=== PATIENT | female | born 1950 | race Caucasian/White ===

== ENCOUNTER 2017-02-24 20:28 | Inpatient (IN) ==
[2017-02-24] MEDS ORDERED: Naloxone 0.4 MG/ML INJ IVP PRN (21:34)
[2017-02-24] MEDS ORDERED: *HR* Morphine 2 MG/ML SYRINGE IVP PRN ×2 (21:34→21:42)
--- NOTE | 2017-02-24 21:38 | General Surg History&Physical ---
Date of Encounter: 02/24/17 Time of Encounter: 21:20 Assessment and Plan (1) Splenic laceration Current Visit: Yes Status: Acute The assessment and plan as outlined above was discussed with the patient and/or family members who expressed understanding and agreement. All questions were answered. The patient presents with an apparent splenic laceration either from falling from syncope or colonoscopy. This is a very unusual complication. The CAT scan from [facility] is being downloaded for comparison and a follow-up CAT scan has been ordered. We will continue to treat her for hemorrhagic shock. We have discussed methods of augmenting her coagulation status while on therapeutic Plavix. I felt that the whole blood would be useful but the laboratory informed us that this is unavailable. The patient has undergone continuous management for over one hour in the ICU setting. Qualifiers: Encounter type: initial encounter Qualified Code(s): S36.039A - Unspecified laceration of spleen, initial encounter History of Present Illness Chief complaint: Syncope and abdominal bleeding HPI: Ms. Varma is a 66 year old female He underwent colonoscopy earlier today by Dr. William. On the way home from the hospital she had a syncopal event. She presented to the [facility] emergency department and had an initial hemoglobin of 11. She underwent CAT scan of the abdomen after complaining of left upper quadrant pain. CAT scan demonstrated bleeding from the spleen. The patient denies any rectal bleeding. The patient had 2 polypectomies both of which were fairly small in the sigmoid colon. The patient takes Plavix for lower extremity arterial stents. The patient is a poor historian but thinks that these are greater than 2 years old. She has no coronary artery stents by history. The Plavix was not discontinued for the procedure. She had a follow-up hemoglobin was 6.5. She received 4 units of packed red blood cells. She was transferred to the intensive care unit at [facility]. At time of evaluation she is awake and alert and complaining of left upper quadrant pain. Her heart rate was 78 systolic blood pressure was 94. Her CAT scan came as a disc and is currently being downloaded. I have ordered a repeat CAT scan with intravenous contrast to see if she is actively bleeding. My plan is to treat her like blunt trauma assuming that these splenocolic ligament or adhesion has created a capsular injury. Unfortunately she is on Plavix and our ability to reverse her coagulopathy is limited. We will plan to transfuse HER-2 stability. She may require embolization of the spleen. We will reserve splenectomy for treatment failure. Past Med Surg Social Fam HX - Past Medical History Medical history: syncope, TIA, other (Peripheral vascular disease) - Past Surgical History Surgical History: vascular surgery - Social History Alcohol use: none Drug use: none Medications and Allergies Aspirin [Lo-Dose Aspirin EC] 81 mg PO DAILY 11/09/16 [History] Atorvastatin Calcium 80 mg PO DAILY 02/23/17 [History] Calcium Carbonate [Calcium] 1,000 mg PO DAILY 02/23/17 [History] Clopidogrel [Plavix] 75 mg PO DAILY 02/23/17 [History] Folic Acid/Multivit-Min/Lutein [Adult Multivitamin Gummies] 1 each PO DAILY [History] Gluc/Sotero-MSM#1/C/Sudheer/Mukesh/Bor [Osteo Bi-Flex Caplet] 2 each PO DAILY 02/23/17 [ History] Metoprolol Succinate 50 mg PO DAILY 02/23/17 [History] Ranitidine HCl [Heartburn Relief] 150 mg PO BID 02/23/17 [History] hydroCHLOROthiazide [Hydrochlorothiazide] 25 mg PO DAILY 02/23/17 [History] 3 Allergy/AdvReac Type Severity Reaction Status Date / Time amlodipine Allergy See Verified 11/09/16 12:47 Comments lisinopril Allergy See Verified 11/09/16 12:47 Comments Review of Systems All systems PM: A 10-system review of systems was performed and is negative for pertinent findings except as documented above in the HPI. General Surgery Exam Heart rate is 78. Systolic blood pressures 94 - General physical appearance other (Examined in the intensive care unit supine. She is pale.) - Neck no masses, no bruits, trachea midline, no lymphadectomy, no venous distension - Abdomen Abdomen general surgery: Present: tender Abdominal Tenderness: Present: LUQ Results - Labs All other labs normal.
--- NOTE | 2017-02-24 21:41 | Internal Med History&Physical ---
Date of Encounter: 02/24/17 Internal Medicine - H&P: HPI History of present illness: Ms. Varma is a 66 year old female Past Med Surg Social Fam HX - Social History Alcohol use: none Drug use: none Internal Medicine - H&P: Meds Aspirin [Lo-Dose Aspirin EC] 81 mg PO DAILY 11/09/16 [History] Atorvastatin Calcium 80 mg PO DAILY 02/23/17 [History] Calcium Carbonate [Calcium] 1,000 mg PO DAILY 02/23/17 [History] Clopidogrel [Plavix] 75 mg PO DAILY 02/23/17 [History] Folic Acid/Multivit-Min/Lutein [Adult Multivitamin Gummies] 1 each PO DAILY [History] Gluc/Sotero-MSM#1/C/Sudheer/Mukesh/Bor [Osteo Bi-Flex Caplet] 2 each PO DAILY 02/23/17 [ History] Metoprolol Succinate 50 mg PO DAILY 02/23/17 [History] Ranitidine HCl [Heartburn Relief] 150 mg PO BID 02/23/17 [History] hydroCHLOROthiazide [Hydrochlorothiazide] 25 mg PO DAILY 02/23/17 [History] 3 Allergy/AdvReac Type Severity Reaction Status Date / Time amlodipine Allergy See Verified 11/09/16 12:47 Comments lisinopril Allergy See Verified 11/09/16 12:47 Comments All Systems PM: A 10-system review of systems was performed and is negative for pertinent findings except as documented above in the HPI.
[2017-02-24] MEDS ORDERED: 0.9 % Sodium Chloride 1,000 ML IVC ONE (21:43)
[2017-02-24 22:11] LABS: Basophils % 0.4 %; Eosinophils % 0.1 %; Hematocrit 36.2 % (35.3-44.9); Hemoglobin 11.6 g/dL (11.5-15.4); Immature Granulocytes % 0.4 % (0-4); Lymphocytes # 0.9 K/mcL (0.6-4.6); Lymphocytes % 10.4 %; Mean Corpuscular Hemoglobin 30.2 pg (28.0-33.3); Mean Corpuscular Volume 94.3 fL (83.0-100.0); Mean Platelet Volume 10.2 fL (9.4-12.4); Monocytes # 0.4 K/mcL (0.0-1.3); Monocytes % 4.3 %; Neutrophils # 7.1 K/mcL (1.6-8.9); Platelet Count 143 K/mcL (140-400); Red Blood Count 3.84 M/mcL (3.82-4.97); Red Cell Distribution Width 16.5 % (11.5-14.5); Segmented Neutrophils % 84.4 %
[2017-02-24 22:17] LABS: INR 1.1; Prothrombin Time 11.8 Seconds (9.4-12.1)
[2017-02-24 22:20] LABS: Activated Partial Thrombo Time 23.3 Seconds (26.0-36.0)
[2017-02-24] MEDS ORDERED: *HR* HYDROmorphone (PF) 1 MG/ML SYRINGE IVP ONE (22:20)
[2017-02-24 22:22] LABS: Calcium 7.3 mg/dL (8.6-10.8); Magnesium 1.5 mg/dL (1.6-2.6); Phosphorous 5.7 mg/dL (2.3-4.7)
[2017-02-24 22:23] LABS: Potassium 4.9 mEq/L (3.5-4.5)
--- NOTE | 2017-02-24 22:29 | Event Note ---
Date of Encounter: 02/24/17 Time of Encounter: 10:20 Patient has been attended continuously since arrival in the intensive care unit. We had a discussion on treatment of patients on Plavix with blunt force injury to the spleen or localized trauma to the capsule area. We decided to transfuse platelets along with packed red blood cells. The patient is currently received 4 units of packed red blood cells and will receive platelets next. Followed by 2 additional units of packed cells. I attended the patient had CAT scan. Blood pressure was 140 systolic heart rate was 72. There was significant hemorrhage around the spleen with very little splenic parenchyma left. There is blood around the liver and in the pelvis. At this point the surgical literature suggests high incidence of failure of conservative management. We discussed splenic embolization with interventional radiology and the opinion was that very little spleen could be salvaged using this technique. Suggests that primary splenectomy may be her best course of action. If this is necessarily prefer that the trauma service at [facility] perform the procedure. This could be coordinated with interventional radiology if necessary. We will likely need to fly the patient at [facility] this evening. We will continue ongoing treatment of hemorrhagic shock. Initial treatment has been successful with stabilization of blood pressure and heart rate.
[2017-02-24] MEDS ORDERED: methylPREDNISolone 125 MG/2 ML VIAL IVP ONE (22:34)
[2017-02-24] MEDS ORDERED: 0.9 % Sodium Chloride 1,000 ML ONE ×3 (23:02→23:49)
--- NOTE | 2017-02-24 23:03 | Internal Medicine Consult Note ---
<Alexx Stuart - Last Filed: 02/24/17 23:04> Date of Encounter: 02/24/17 Time of Encounter: 23:03 - Assessment and Plan (1) Splenic laceration Current Visit: Yes Status: Acute Assessment and plan: Repeat CT scan with IV contrast of the abdomen and pelvis showed splenic hemorrhage/possible rupture. This is possibly secondary to colonoscopy or fall. Patient had received 2 L normal saline at outside facility and 4 units of packed red blood cells. Due to being on Plavix, whole blood was attempted to be obtained from blood Bank and the [place]. However, blood bank notified that [place] and blood bank do not have old blood products at this time. Patient was ordered 2 units of platelets, 4 packed red blood cells to be transfused, 2 packed red blood cells on hold. Platelets will be transfused first. Patient is Rh negative and only rh + platelets available. Will give solumedrol 125 and benadryl 50mg before receiving transfusion. She was also given an additional 1 L bolus along with 1 mg of Dilaudid for pain control. Blood pressure currently stable, 100s over 70s. Central line was placed emergently for access in the right IJ. Surgery has spoken with IR here and surgery at [facility]. It was decided that the patient will be flown to [facility] for further intervention. Qualifiers: Encounter type: initial encounter Qualified Code(s): S36.039A - Unspecified laceration of spleen, initial encounter (2) Hemorrhagic shock Current Visit: Yes Status: Acute Assessment and plan: See above. Patient had episode of SBP in 80s but has now stabilized to 100s/ 70s after fluid bolus and transfusion. (3) Hypotension Current Visit: Yes Status: Acute Assessment and plan: See above Qualifiers: Hypotension type: other hypotension type Qualified Code(s): I95.89 - Other hypotension (4) Abdominal pain Current Visit: Yes Status: Acute Assessment and plan: Secondary to splenic hemorrhage/laceration. Given 1mg Dilaudid for pain control. Please see above. Qualifiers: Abdominal location: left upper quadrant Qualified Code(s): R10.12 - Left upper quadrant pain (5) Anemia Current Visit: Yes Status: Acute Assessment and plan: Secondary to hemorrhagic shock. See above. Qualifiers: Anemia type: other cause Other causes of anemia: other cause, not classified Qualified Code(s): D64.89 - Other specified anemias Internal Medicine - CN: HPI - Data of Consult Patient: new to practice Consult date: 02/24/17 Requesting Physician: Scooter Santos MD - Consult Narrative Reason for consult: splenic hemorrhage History of present illness: Ms. Varma is a 66 year old female with past medical history of hypertension, hyperlipidemia, CAD, bilateral lower extremity stenting secondary to peripheral artery disease and on aspirin and plavix daily. Past surgical history includes hysterectomy, appendectomy, tonsillectomy. This patient was accepted to the ICU by Dr. Santos, surgery, with internal medicine as a consult. Patient had a colonoscopy performed this morning by Dr. William. She states that after the colonoscopy, she had an episode of syncope and collapse, nausea, vomiting, loss of bowel or bladder control at home. She is uncertain if she fell onto anything when she passed out. She states that couple hours after the fainting episode, she had development of abdominal pain, mainly in the left upper quadrant. She also noticed that her stomach became more distended. She was seen and evaluated at [facility]. While there, patient had an initial hemoglobin of 11.4. CT scan of the abdomen and pelvis showed "heterogenous sentinel clot material in the location of the spleen with a small to moderate amount of diffuse hemoperitoneum. Splenic hemorrhage is favored to be the source of hemoperitoneum." Although, the scan was done without contrast. During her stay here, the patient was given 2 L of normal saline, repeat hemoglobin was 6.6. The patient received a total of 4 units of packed red blood cells. On arrival, the fourth unit of packed red blood cells was being transfused, blood pressure was stable in 120s over 70s. Patient was complaining of diffuse abdominal pain, worse in the left upper quadrant. Currently denies any chest pain, shortness breath, numbness, tingling, weakness , headache, neck pain, any other injuries. She does admit to mild nausea but no additional vomiting since original episode. She does state that she took Plavix and aspirin this morning along with metoprolol 50 mg extended release. Past Med Surg Social Fam HX - Past Medical History Medical history: syncope, TIA, other (Peripheral vascular disease) - Past Surgical History Surgical History: vascular surgery - Social History Alcohol use: none Drug use: none All systems: reviewed and no additional remarkable complaints except as stated Internal Medicine - CN: Meds Aspirin [Lo-Dose Aspirin EC] 81 mg PO DAILY 11/09/16 [History] Atorvastatin Calcium 80 mg PO HS 02/23/17 [History] Calcium Carbonate [Calcium] 1,000 mg PO DAILY 02/23/17 [History] Clopidogrel [Plavix] 75 mg PO DAILY 02/23/17 [History] Folic Acid/Multivit-Min/Lutein [Adult Multivitamin Gummies] 1 each PO DAILY [History] Gluc/Sotero-MSM#1/C/Sudheer/Mukesh/Bor [Osteo Bi-Flex Caplet] 2 each PO DAILY 02/23/17 [ History] Ranitidine HCl [Heartburn Relief] 150 mg PO BID 02/23/17 [History] hydroCHLOROthiazide [Hydrochlorothiazide] 25 mg PO DAILY 02/23/17 [History] Metoprolol XL (24 HR) Succ [Toprol XL] 50 mg PO DAILY 02/24/17 [History] 3 Allergy/AdvReac Type Severity Reaction Status Date / Time amlodipine Allergy See Verified 11/09/16 12:47 Comments lisinopril Allergy See Verified 11/09/16 12:47 Comments Internal Medicine - CN: Exam - Constitutional Vitals: Temp Pulse Resp BP Pulse Ox 96.4 F L 82 18 90/54 95 02/24/17 21:20 02/24/17 22:43 02/24/17 22:43 02/24/17 22:43 02/24/17 22:43 General appearance IM: Present: A&O X 3 Exam: in pain, moaning and stating her stomach hurts, eyes closed - Head Head exam: Present: atraumatic, normal inspection, normocephalic - Eye Eye exam: Present: EOMI, normal appearance, conjuntiva pink, sclera anicteric. Absent: periorbital swelling, periorbital tenderness Pupils: Present: PERRL - ENT ENT exam: Present: mucous membranes moist, normal exam - Neck Neck exam general surgery: Present: normal inspection, supple, trachea midline - Respiratory Respiratory exam: Present: CTAB. Absent: accessory muscle use - Cardiovascular Cardiovascular exam IM: Present: RRR, +S1, +S2. Absent: systolic murmur - GI/Abdominal GI/Abdominal exam IM: Present: distended, guarding (Voluntary), tenderness ( Moderate to severe left upper quadrant pain) - Extremities Exam Extremities exam IM: Present: normal inspection, radial pulses palpable and symmetrical. Absent: pedal edema - Neurological Exam Neurological exam: Present: alert, oriented X3. Absent: facial droop, speech deficit - Psychiatric Psychiatric exam: Present: anxious - Skin Skin exam IM: Present: intact, pallor Internal Medicine - CN: Reslt - Labs CBC & Chem 7: 02/24/17 22:03 02/24/17 22:03 Labs: Short CBC 02/24/17 Range/Units 22:03 WBC 8.4 (4.3-11.1) K/mcL Hgb 11.6 (11.5-15.4) g/dL Hct 36.2 (35.3-44.9) % Plt Count 143 (140-400) K/mcL Neutrophils # 7.1 (1.6-8.9) K/mcL BMP 02/24/17 22:03 Sodium 140 Potassium 4.9 H Chloride 116 H Carbon Dioxide 13 L BUN 38 H Creatinine 1.79 H Glucose 173 H Calcium 7.3 L - ABG Interpretation ABG results: PT/INR, D-dimer PT 11.8 Seconds (9.4-12.1) 02/24/17 22:03 - Impressions Impressions Abdomen/Pelvis CT 02/24/17 21:31 IMPRESSION: Large area of abnormal intermediate attenuation within the left upper quadrant is felt to be related to hemorrhage secondary to splenic rupture. There is suspicion of presence of active bleeding with bandlike area of high attenuation along the lateral border of the spleen as described above. Findings were discussed with Apoorva Knowles by Dr. Washington. D/ / Jorden Boyle MD / Jorden Boyle MD Interpreting Provider: Jorden Boyle MD <Aamir Wilhelm - Last Filed: 02/25/17 00:30> Date of Encounter: 02/24/17 Time of Encounter: 23:15 Internal Medicine - CN: HPI - Data of Consult Requesting Physician: Scooter Santos MD Internal Medicine - CN: Exam - Constitutional Vitals: Temp Pulse Resp BP Pulse Ox 96.1 F L 86 14 96/63 97 02/24/17 23:07 02/24/17 23:55 02/24/17 23:55 02/24/17 23:55 02/24/17 23:55 General appearance IM: Present: mild distress, A&O X 3 - Head Head exam: Present: atraumatic, normal inspection - Eye Eye exam: Present: EOMI, normal appearance. Absent: scleral icterus - Neck Neck exam general surgery: Present: normal inspection, supple. Absent: tenderness - Expanded Neck Exam Neck exam: Absent: carotid bruit - Respiratory Respiratory exam: Present: CTAB. Absent: rales, rhonchi, wheezes - Cardiovascular Cardiovascular exam IM: Present: RRR, +S1, +S2. Absent: diastolic murmur, systolic murmur - GI/Abdominal GI/Abdominal exam IM: Present: diminished bowel sounds, distended, guarding, tenderness - Extremities Exam Extremities exam IM: Present: normal inspection, radial pulses palpable and symmetrical. Absent: calf tenderness, tenderness - Neurological Exam Neurological exam: Present: alert, oriented X3, no focal deficits - Skin Skin exam IM: Present: dry, pallor, warm. Absent: rash Internal Medicine - CN: Reslt - Labs CBC & Chem 7: 02/24/17 22:03 02/24/17 22:03 Labs: Short CBC 02/24/17 Range/Units 22:03 WBC 8.4 (4.3-11.1) K/mcL Hgb 11.6 (11.5-15.4) g/dL Hct 36.2 (35.3-44.9) % Plt Count 143 (140-400) K/mcL Neutrophils # 7.1 (1.6-8.9) K/mcL BMP 02/24/17 22:03 Sodium 140 Potassium 4.9 H Chloride 116 H Carbon Dioxide 13 L BUN 38 H Creatinine 1.79 H Glucose 173 H Calcium 7.3 L - ABG Interpretation ABG results: PT/INR, D-dimer PT 11.8 Seconds (9.4-12.1) 02/24/17 22:03 - Impressions Impressions Abdomen/Pelvis CT 02/24/17 21:31 IMPRESSION: Large area of abnormal intermediate attenuation within the left upper quadrant is felt to be related to hemorrhage secondary to splenic rupture. There is suspicion of presence of active bleeding with bandlike area of high attenuation along the lateral border of the spleen as described above. Findings were discussed with Apoorva Knowles by Dr. Washington. D/ / Jorden Boyle MD / Jorden Boyle MD Interpreting Provider: Jorden Boyle MD Chest X-Ray 02/24/17 22:53 IMPRESSION: Status post right jugular central venous catheter. No pneumothorax. D/ / Magdalena Jordan Cha, MD / Magdalena Jordan Cha, MD Interpreting Provider: Magdalena Jordan Cha, MD - Attending Attestation I discussed the patient MOAPA, PMH, ROS, lab data, and exam findings with Dr. Stuart. I also reviewed the records from [facility] [place]. I then saw and examined patient independently as well. I also discussed the patient case in detail with Dr. Santos (primary attending), Interventional Radiology, and Hematology. We were providing medical support in the form of PRBC and platelet trasnfusion, IVF boluses, and coordinating care. Dr. Santos and I discussed options. I called IR per Dr. Santos's request in an attempt to proceed with embolization of splenic artery. I spoke with IR attending who reviewed films and recommended splenectomy. He spoke with Dr. Santos as well. At that point, Dr. Santos contacted [facility] and spoke with trauma surgery who also recommended splenectomy. At that point, arrangements were being made to transfer patient by [facility] to [facility] for emergency splenectomy. Central line was placed by Dr. Stuart with Dr. Santos's supervision. We continued blood product transfusion and stabilization until [facility] arrived. I was present in ICU and assisted Dr. Stuart and Dr. Santos in the care of this patient until transfer arrangements were made. I agree with Dr. Stuart's assessment and plan as noted above and with discussions and decision making process with Dr. Santos.
--- NOTE | 2017-02-24 23:48 | Procedure Note ---
<Alexx Stuart - Last Filed: 02/24/17 23:44> Date of procedure: 02/24/17 Pre-op diagnosis: hemorrhagic shock Post-op diagnosis: same Procedure: Date: 02/24/17 Time: 22:49 Indication: hemorrhagic shock Resident: Alexx Stuart DO Attending: Dr. Scooter Santos A time-out was completed verifying correct patient, procedure, site, positioning. The patient was placed in a dependent position appropriate for central line placement based on the vein to be cannulated. The patients right neck was prepped and draped in sterile fashion. 1% Lidocaine was used to anesthetize the surrounding skin area. A 16cm triple lumen catheter was introduced into the the internal jugular vein using the Seldinger technique and under ultrasound guidance. The catheter was threaded smoothly over the guide wire and appropriate blood return was obtained. Each lumen of the catheter was evacuated of air and flushed with sterile saline. The catheter was then sutured in place to the skin and a sterile dressing applied. Dr. Santos was present for the entire procedure and during verification of placement with ultrasound. Estimated Blood Loss: 3cc The patient tolerated the procedure well and there were no complications Post procedure CXR showed proper placement and no pnuemothorax. <Scooter Santos - Last Filed: 02/25/17 17:26> Date of procedure: 02/24/17 Procedure: The patient is seen and evaluated. I was present for the placement of the internal jugular central line. I personally reviewed the ultrasound images during placement. Patient tolerated the procedure well. Scooter Santos MD FACS
[2017-02-25] MEDS ORDERED: Famotidine 20 MG/2 ML VIAL IVP SCH (06:00)
--- NOTE | 2017-02-25 17:13 | Electrocardiograph Report ---
[address] [place] [address] Test Date: 2017-02-24 Pat Name: Anastacia Varma Department: 109 Room: [facility] Gender: F [employer]: KAM : 1950 Requested By: Alexx Stuart Order Number: [id number] Reading MD: Ynes Mckeon Measurements Intervals [place] Rate: 73 P: 53 CT: 178 QRS: -11 QRSD: 85 T: 32 QT: 432 QTc: 458 Interpretive Statements SINUS RHYTHM Electronically Signed On 02-25-2017 17:11:14 EDT by Ynes Mckeon
== END 2017-02-24 23:59 | disposition critical access hospital (66) | DRG 814 ==
LOC: ICNU 21:22
PROVIDERS: ADMIT Surgery; ATTEND Surgery